=== PATIENT | female | born 1990 | race Caucasian/White ===

== ENCOUNTER 2022-12-06 19:53 | Emergency (ER) | payer OTHER, SELFPAY ==
[2022-12-06 19:56] VITALS: BP 154/109; PULSE 115; RESP 28; O2SAT 99
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
--- NOTE | 2022-12-06 20:01 | ECG_ITS ---
The [facility] Test Date: 2022-12-06 Pat Name: MADI CHAPA Department: Room: - Gender: Female [employer] Bet[employer]: : 1990 Requested By: Order Number: [id number] Reading MD: BARNEY RAIN Measurements Intervals [place] Rate: 107 P: 52 MS: 160 QRS: 64 QRSD: 84 T: 49 QT: 340 QTc: 403 Interpretive Statements 1120 Sinus tachycardia 4068 Nonspecific Tw[place] abnormality 0102 ARTIFACT PRESENT 9140 abnormal rhythm ECG No previous ECG available for comparison Electronically Signed On 12-08-2022 16:58:12 EDT by BARNEY RAIN
--- NOTE | 2022-12-06 20:01 | XR_ITS ---
The [address] [address] Patient Name: MADI CHAPA MRN: [id number] date: 1990 Sex: F Assigned Patient Location: ER Current Patient Location: ER Accession/Order Number: [id number] Exam Date: 12/06/2022 20:55 Report Date: 12/06/2022 22:12 At the request of: JOSÉ MIGUEL HENRY Procedure: XR femur RT 2V EXAM: XR femur RT 2V HISTORY: pain COMPARISON: CT, same date TECHNIQUE: Frontal and lateral views of the right femur are performed. FINDINGS: There is posterior dislocation of the right femoral head relative to the acetabulum. Slightly displaced posterior acetabular fragments are present. The remainder of the right femur is intact. XR/XR femur RT 2V IMPRESSION: Posterior dislocation of the right femoral head with associated displaced comminuted posterior acetabular fracture. Electronically authenticated by: MODESTO MEIER Date: 12/06/2022 22:12
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
--- NOTE | 2022-12-06 20:02 | PC.NURSE ---
Lac above left eye brow and abrasions to bilat knees
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
--- NOTE | 2022-12-06 20:04 | XR_ITS ---
[address] [address] Patient Name: MADI CHAPA MRN: [id number] date: 1990 Sex: F Assigned Patient Location: ER Current Patient Location: ED.MAIN Accession/Order Number: [id number] Exam Date: 12/06/2022 20:55 Report Date: 12/06/2022 22:09 At the request of: JOSÉ MIGUEL HENRY Procedure: XR knee LT 4V EXAMINATION: XR knee LT 4V, , 12/06/2022 8:55 PM EDT INDICATION: pain HISTORY: Ordering Provider Reason for Exam: pain Technologist Note: Additional: COMPARISON: None. TECHNIQUE: Left knee x-ray: 3 view(s). FINDINGS: No acute fracture. Joint alignment is anatomic. Joint spaces are preserved. No significant joint effusion. Soft tissues are within normal limits. XR/XR knee LT 4V IMPRESSION: No acute fracture or traumatic malalignment. Electronically authenticated by: EMERITA GARCIA Date: 12/06/2022 22:09
[2022-12-06] MEDS: MORPHINE SULFATE 4 MG/ML VIAL IV (20:18)
[2022-12-06] MEDS: ONDANSETRON PF 4 MG/2 ML VIAL IV (20:21)
[2022-12-06 20:26] LABS: Basophils Percent Auto 0.4 % (0.2-2.0); Eosinophils Absolute Auto 0.2 10^3/uL (0.0-0.7); Eosinophils Percent Auto 2.6 % (0.9-7.0); Hematocrit 39.1 % (36.0-48.0); Hemoglobin 13.4 g/dL (12.0-16.0); Immature Granulocytes Abs Auto 0.02 10^3/uL (0.00-0.03); Immature Granulocytes Pct Auto 0.3 % (0.0-0.5); Lymphocytes Absolute Auto 1.9 10^3/uL (1.2-3.8); Lymphocytes Percent Auto 26.7 % (20.5-60.0); Mean Corpuscular HGB Conc 34.3 g/dL (29.9-35.2); Mean Corpuscular Hemoglobin 28.1 pg (26.7-34.0); Mean Platelet Volume 9.9 fL (9.5-13.5); Monocytes Absolute Auto 0.5 10^3/uL (0.3-0.8); Monocytes Percent Auto 7.5 % (1.7-12.0); Neutrophils Absolute Auto 4.5 10^3/uL (1.4-6.5); Neutrophils Percent Auto 62.5 % (43.0-75.0); Platelet Count 244 10^3/uL (150-450); Red Blood Count 4.77 10^6/uL (4.20-5.40); Red Cell Distribution Width 13.2 % (11.0-15.0); White Blood Count 7.2 10^3/uL (4.0-11.0)
[2022-12-06] MEDS: HYDROMORPHONE HCL 2 MG/ML VIAL 1 MG IV ×2 (20:30→21:30)
[2022-12-06 20:36] LABS: Alanine Aminotransferase 20 U/L (14-59); Alkaline Phosphatase 82 U/L (46-116); Anion Gap 13.2; Aspartate Amino Transferase 31 U/L (15-37); BUN Creatinine Ratio 18.8; Bilirubin Total 0.5 mg/dL (0.2-1.0); Carbon Dioxide 24.1 mmol/L (21.0-32.0); Chloride 106 mmol/L (98-107); Estimated GFR (African America >60 (>=60); Estimated GFR (Non-African Ame >60 (>=60); Globulin 3.9 g/dL; Glucose 132 mg/dL (74-106); Potassium 4.3 mmol/L (3.5-5.1); Sodium 139 mmol/L (136-145); Total Protein 7.9 g/dL (6.4-8.2)
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
[2022-12-06] MEDS: 0.9 % SODIUM CHLORIDE 1,000 ML 1000 ML IV (21:34)
[2022-12-06 21:43] VITALS: BP 154/101; PULSE 97; RESP 20; O2SAT 100
--- NOTE | 2022-12-06 21:44 | PC.NURSE ---
Patient on left side for comfort
[2022-12-06 22:07] VITALS: BP 150/94; PULSE 87; RESP 14; O2SAT 98
--- NOTE | 2022-12-06 22:39 | PC.NURSE ---
LET was placed on left forehead wound.
[2022-12-06 22:55] VITALS: BP 140/82; PULSE 96; RESP 24; O2SAT 96
--- NOTE | 2022-12-06 23:21 | PC.NURSE ---
Report called to Cristine verdugo [place] [phone].
== END 2022-12-06 23:10 | disposition short-term general hospital (02) ==
PROVIDERS: Emergency Provider Emergency Medicine
DX: S32.491A Other specified fracture of right acetabulum, initial encounter for closed fracture (principal); S80.212A Abrasion, left knee, initial encounter; S80.211A Abrasion, right knee, initial encounter; S01.91XA Laceration without foreign body of unspecified part of head, initial encounter; F11.11 Opioid abuse, in remission; V43.62XA Car passenger injured in collision with other type car in traffic accident, initial encounter
CPT/HCPCS: 36415; 70450; 71260; 72125; 73552; 73564; 74177; 80053; 85025; 93005; 96374; 96375; 96376; 99291; J1170; Q9967